=== PATIENT | male | born 1970 | race African-American/Black ===

== ENCOUNTER 2016-10-27 22:29 | Emergency (ER) | payer MEDICARE, OTHER ==
[2016-10-27 22:29] VITALS: PULSE 0
[~2016-10-27 22:29] MED LIST: ATRO1SOL11 SL; BACL10TA G-TUBE; BETH10TA2 G-TUBE; BUME1TAB26 G-TUBE; CARB100S2 PO; CARV3.125 G-TUBE; COUM5TAB PO; GLYC1TAB17 G-TUBE; IPRASOL NEB; LACO100S G-TUBE; LEVE500S G-TUBE; POLY0.052 EACH EYE; POTA10SO12 G-TUBE; RANI75SY G-TUBE; REGL10TA5 G-TUBE; SENO8.6T5 G-TUBE; TYLE325T G-TUBE; VALP250S2 G-TUBE
--- NOTE | 2016-10-27 22:47 | PD ---
HPI Chief Complaint: cardiopulmonary arrest Time Seen by Provider: 22:38 Travel History International Travel<30 days: No Contact w/Intl Traveler<30days: No History of Present Illness HPI The patient is a 46 year old male who presents to the [facility] emergency department with a history of last being seen in his usual state of health at his halfway facility 10 minutes prior to being found apneic and pulseless. Chest compressions were started by the [facility] staff and ambulance services were called. The patient was noted to have asystole on fire rescue's arrival at approximately 2147. ACLS protocol was followed. The patient prior to arrival was noted to have a blood sugar of 250. The patient was noted to have at the beginning of fire rescue's evaluation and brief return of pulse, however since then in approximately 40-45 minute period of asystole. The patient's pupils are fixed and dilated. The patient has in route to this facility been given 6 mg of epinephrine in separate doses per ACLS protocol, 2 mg of Narcan, 1 amp of bicarbonate, 1 g of calcium chloride IV. The patient on arrival continues to be in asystole. The patient has no spontaneous respiratory effort. 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 The patient is nonverbal. The patient has a trach and a PEG tube for feedings. The patient arrives at this facility with an intraosseous access and the left gonzales. The patient is being bagged to his trach and the patient is reportedly easily bagged without any signs of obstruction. [facility] Past Medical History Narrative Medical The patient's past medical history according to the electronic medical record includes recurrent multidrug resistant pneumonia, history of severe brain damage related to a traumatic brain injury, history of seizure disorder, history of DVT, history of non-ST segment elevation [place], history of obesity. Hx Anticoagulant Therapy: Yes Diminished Hearing: No Deep Vein Thrombosis: Yes Gastrointestinal Disorders: Yes (DYSPHAGIA, ILEUS DX AT 05/2015) GERD: Yes Hypertension: Yes Musculoskeletal: Yes (CONTRACTURES) Neurologic: Yes (TRAUMATIC HEMORRHAGE 2009) Immunizations Current: No (UNKNOWN) Seizures: Yes Past Surgical History Narrative Surgical The patient's past surgical history is significant for an IVC filter placement, history of tracheostomy, PEG tube placement, craniotomy with [employer] shunt placement. Abdominal Surgery: Yes (PEG TUBE) Other Surgery: Yes (trach) Social History Alcohol Use: No Tobacco Use: No Substance Use: No Allergies-Medications (Allergen,Severity, Reaction): Coded Allergies: *MDRO Multi-Drug Resistant Organism (Verified Adverse Reaction, Unknown, ) MRSA PCR screen positive - 09/23/2015 Reported Meds & Prescriptions Reported Meds & Active Scripts Active Coumadin (Warfarin) 5 Mg Tab 5 Mg PO DAILY Carbamazepine Liq (Carbamazepine) 100 Mg/5 Ml Susp 200 Mg PO Q12HR 30 Days Reported Vimpat Liq (Lacosamide) 10 Mg/Ml Soln 100 Mg G-TUBE Q8HR Valproic Acid Liq 250 Mg/5 Ml Syp 500 Mg G-TUBE BID Senokot (Sennosides) 8.6 Mg Tab 17.2 Mg G-TUBE HS Reglan (Metoclopramide HCl) 10 Mg Tab 10 Mg G-TUBE TID Ranitidine Liq (Ranitidine HCl) 75 Mg/5 Ml Syp 150 Mg G-TUBE Q12HR Potassium Chloride Liq (Potassium Chloride) 20 Meq/15 Ml Soln 40 Meq G-TUBE DAILY Polyvinyl Alcohol Opth (Polyvinyl Alcohol) 1.4% Soln 1 Drop EACH EYE TID Keppra Liq (Levetiracetam) 500 Mg/5 Ml Soln 750 Mg G-TUBE Q12HR Duoneb (Ipratropium-Albuterol Neb) 0.5-2.5 Mg/3 Ml Neb 3 Ml NEB QID Glycopyrrolate 1 Mg Tab 1 Mg G-TUBE TID Coreg (Carvedilol) 3.125 Mg Tab 3.125 Mg G-TUBE Q12HR Bumex (Bumetanide) 1 Mg Tab 1 Mg G-TUBE DAILY Bethanechol 10 Mg Tab 10 Mg G-TUBE Q8HR Baclofen 10 Mg Tab 10 Mg G-TUBE Q8HR PRN Atropine Opth Drops 1% Soln 3 Drop SL Q6HR PRN Tylenol (Acetaminophen) 325 Mg Tab 650 Mg G-TUBE Q6H PRN Review of Systems ROS Limitations: Clinical Condition, Intubated Physical Exam Narrative General: The patient is a well-developed, well-nourished male with ACLS protocol in progress with chest compressions being provided and the patient is being actively bagged to his trach.. Head and Neck exam: Head is normocephalic, evidence of prior craniotomy with scarring along the right side of the temporal scalp. Eyes: extraocular motion testing is unable to be accomplished as the patient arrives unresponsive, pupils are fixed and dilated. Nose: Midline septum with pink mucous membranes Mouth: Dentition unremarkable. Moist mucus membranes. Posterior oropharynx is not erythematous. No tonsillar hypertrophy. Uvula midline. Airway patent. Neck: No palpable lymphadenopathy. No nuchal rigidity. No thyromegaly. The patient has a trach that is being actively bagged. Cardiovascular: No cardiac activity is auscultated. Lungs: The patient has no spontaneous respiratory effort. Equal breath sounds bilaterally being assisted with bag to tracheostomy. No wheezes, rhonchi, or rales. Abdomen: Soft, without tenderness to palpation in all 4 quadrants of the abdomen. No guarding, rebound, or rigidity. Extremities: No clubbing or cyanosis. The patient has 2+ pitting edema bilateral lower extremities per Neurologic Exam: The patient arrives with a GCS of 3. Eyes 1. Motor 1. Verbal- 1. Skin Exam: No rash noted. Intact skin that is warm and dry. Data Data Last Documented VS Vital Signs Date Time Temp Pulse Resp B/P Pulse Ox O2 Delivery O2 Flow Rate FiO2 10/27/16 22:29 0 10/27/16 22:25 15.00 100 MDM Medical Decision Making Medical Screen Exam Complete: Yes Emergency Medical Condition: Yes Medical Record Reviewed: Yes Differential Diagnosis Respiratory failure leading to cardiac arrest, versus acute coronary syndrome, versus cardiac arrhythmia, versus pulmonary embolism Narrative Course During the course of the patients emergency department visit, IV access was obtained. ACLS protocol was continued. The patient's history was reviewed with the ambulance services. The patient's blood sugar was noted to be 250 according to them. The patient is placed on a playground monitor with oximetry and blood pressure monitoring. The respiratory therapist was available at the bedside to continue bagging the patient. The patient was being easily bagged. The patient had equal breath sounds with bagging. Chest compressions were continued. The patient was due for epinephrine administration after he was noted to be in asystole on our monitor. The patient was given 1 mg of epinephrine IV. Chest compressions were continued. The ultrasound machine was placed at the patient's bedside to reassess for cardiac activity the next pulse check. After 2 minutes, the patient was reassessed on the monitor and noted to be in asystole. The patient continued to be pulseless. No cardiac activity was noted on examination by ultrasound. The patient's time of was called at 22:33. Mr. Pop Victor, the patient's brother in [place], that is the patient's healthcare surrogate was called. I spoke to him at 10:51 PM regarding the patient's recent history and his . Diagnosis Primary Impression: Cardiopulmonary arrest Disposition: 20 Condition: Apple Capone MD Oct 27, 2016 22:47
== END 2016-10-28 00:45 | disposition expired ==
LOC: NEPE 22:29 → NEPI 10-28 00:45
DX: I46.9 Cardiac arrest, cause unspecified (principal); I10 Essential (primary) hypertension; Z87.820 Personal history of traumatic brain injury; Z79.01 Long term (current) use of anticoagulants; Z86.718 Personal history of other venous thrombosis and embolism; Z87.19 Personal history of other diseases of the digestive system; Z87.39 Personal history of other diseases of the musculoskeletal system and connective tissue; Z86.69 Personal history of other diseases of the nervous system and sense organs
CPT/HCPCS: 92950